=== PATIENT | male | born 1945 | race Caucasian/White ===

== ENCOUNTER → 2017-02-14 | Outpatient (CLI) | payer MEDICARE, OTHER ==
[2017-02-14 09:07] LABS: ALBUMIN 3.1 g/dL (3.4-5.0); ALBUMIN/GLOBULIN RATIO 0.9 (1.0-1.7); CREATININE 1.6 mg/dL (0.7-1.3); GFR 42.8; POTASSIUM 4.6 mmol/L (3.5-5.1); TOTAL BILIRUBIN 0.4 mg/dL (0.2-1.0); TOTAL PROTEIN 6.7 g/dL (6.4-8.2)
[2017-02-14 09:14] LABS: CHOLESTEROL/HDL RATIO 4.1
--- NOTE | 2017-02-14 11:12 | RAD ---
Ultrasound evaluation of the abdominal aorta. Indication: Evaluate for abdominal aortic aneurysm Comparison study: CT of the chest, abdomen, and pelvis June 26, 2010 Discussion: Ultrasound evaluation of the abdominal aorta was performed. Static images are submitted to PACS. Limited color Doppler imaging and spectral analysis was performed. The abdominal aorta appears to be grossly normal in caliber. No abdominal aortic aneurysm is identified. Maximal diameter of the visualized abdominal aorta is approximately 1.7 cm. The partially visualized common iliac arteries appear to be small in caliber but are otherwise grossly unremarkable. Impression: No evidence of abdominal aortic aneurysm is identified
== END | disposition home or self-care (01) ==
LOC: US 07:56
PROVIDERS: ATTEND Family Medicine
DX: Z13.6 Encounter for screening for cardiovascular disorders (principal)
CPT/HCPCS: 36415; 76770; 80053; 80061